=== PATIENT | female | born 1945 | race Caucasian/White ===

== ENCOUNTER 2016-11-03 13:37 | Emergency (ER) | payer MEDICARE ==
[~2016-11-03] VITALS: Ht 167.6 cm; Wt 64.0 kg
[~2016-11-03 13:37] MED LIST: (NONE)25 ML IM; ADLT ASA LOW81 MG PO; ALLEGRA-D 1212 HOUR PO; ALPRAZOLAM0.25 M1 PO; AMBIEN10 MG PO; AMOXICILLIN/PO500 MG PO; ATENOLOL25 MG OR; ATENOLOL25 MG PO; AUGMENTIN500TAB PO; BENTYL10 MG PO; CARAFATE1 GM PO; CO Q-10 PO; CYANOCOBALAM1000 MCG IM; FLEXERIL PO; FLEXERIL10 MG PO; FLONASE NASAL50 MCG; FLUARIX QUADRIV1 IN1 IM; FUROSEMIDE40 MG PO; LEVSIN0.125 MG PO; LISINOPRIL10 MG PO; LORTAB 1010 MG PO; LORTAB 5/3255 MG PO; LORTAB 7.5 PO; MEDROL4 M1 PO; METOCLOPRAM5 MG PO; MIRAPEX0.5 MG PO; PANTOPRAZOLE SO40 MG PO; PREVPAC PO; PROTONIX20 MG PO; RESTORIL15 M1 PO; TRAMADOL HCL50 MG PO; TRIAZOLAM0.125 MG PO; VICODIN1 TAB PO; VITAMIN B-12500 MCG PO; VITAMIN D32000 UNIT PO; XANAX0.5 MG PO; ZOFRAN8 MG PO; ZOLOFT25 MG OR; [UNRECOGNIZED DRUG - OTHER] PO
[2016-11-03 15:20] LABS: HEMATOCRIT 41.9 % (37.0-47.0); HEMOGLOBIN 14.3 g/dl (12.0-16.0); IMMATURE GRANULOCYTES 0.2 % (0.0-1.0); MEAN CELL VOLUME 93.1 fL CALC (80.0-100.0); MEAN CORPUSCULAR HGB 31.8 pG CALC (26.0-32.0); MEAN CORPUSCULAR HGB CONC 34.1 g/L CALC (32.0-36.0); NEUT# 9.28 thou/uL (2.00-7.15); RED BLOOD COUNT 4.5 mill/uL (4.20-5.60); RED CELL DISTRI WIDTH 12.6 % (11.5-15.5)
[2016-11-03 15:54] LABS: ALBUMIN 4.6 g/dL (3.2-5.0); ALKALINE PHOSPHATASE 71 u/l (38-126); ANION GAP 16 (6-22 (CALC)); BILIRUBIN, TOTAL 0.7 mg/dL (0.0-1.4); BUN 18 mg/dL (8-23); BUN/CREATININE RATIO 22 (12-20 (CALC)); CALCIUM 9.6 mg/dL (8.4-10.2); CARBON DIOXIDE 28 mmol/l (22-30); CHLORIDE 101 mmol/l (95-108); CREATININE 0.8 mg/dL (0.5-1.0); GFR > 60 ML/MIN (>=60 (CALC)); GFR FOR AFR.AMER. > 60 ML/MIN (>=60 (CALC)); GLUCOSE 97 mg/dL (82-115); POTASSIUM 4.1 mmol/l (3.5-5.1); SGOT/AST 26 u/l (9-36); SGPT/ALT 45 u/l (11-66); SODIUM 141 mmol/l (137-146); TOTAL PROTEIN 7.7 g/dL (6.3-8.2)
[2016-11-03] MEDS ORDERED: TYLENOL # 31 TA1 PO (16:07)
[2016-11-03] MEDS ORDERED: PREDNISONE10 MG PO (16:07)
[2016-11-03] MEDS ORDERED: ZITHROMAX250 MG PO (16:07)
[2016-11-03] MEDS ORDERED: VENTOLIN HFA IN (16:07)
[2016-11-03 16:40] VITALS: BP 132/78
== END 2016-11-03 16:45 | disposition home or self-care (01) ==
LOC: ED 13:37
PROVIDERS: Emergency Medicine
DX: J20.9 Acute bronchitis, unspecified (principal); R50.9 Fever, unspecified; R05 Cough; R06.02 Shortness of breath; I50.9 Heart failure, unspecified; I10 Essential (primary) hypertension

== ENCOUNTER → 2018-09-10 | Outpatient (REF) | payer MEDICARE ==
[~2018-09-10] MED LIST changes: +PREDNISONE10 MG PO; +TYLENOL # 31 TA1 PO; +VENTOLIN HFA IN; +ZITHROMAX250 MG PO
== END | disposition home or self-care (01) ==
LOC: MAMMO 13:30
PROVIDERS: ATTEND Nurse Practitioner Family
DX: Z12.31 Encounter for screening mammogram for malignant neoplasm of breast (principal)

== ENCOUNTER 2019-11-27 07:39 | Day surgery (SDC) | payer MEDICARE ==
[~2019-11-27 07:39] MED LIST changes: +AMBIEN5 MG PO; +CARAFATE PO; +CARVEDILOL25 MG PO; +DICYCLOMINE10 MG PO; +FAMOTIDINE20 M1 PO; +HYDROCO/APAP1 TA9 PO; +PREVALITE4 G1 PO; +TRULICITY0.75 MG/0. SC; +ZETIA10 MG PO; +ZOLOFT50 MG PO
[2019-11-27 10:31] VITALS: BP 130/70
== END 2019-11-27 10:30 | disposition home or self-care (01) ==
LOC: ENDO 07:39 → ORM 08:30 → ENDO 08:30
PROVIDERS: ATTEND Surgery
PROC: 0DBL8ZX Excision of Transverse Colon, Via Natural or Artificial Opening Endoscopic, Diagnostic (ICD-10-PCS; principal; 2019-11-27)
PROC: 0DB48ZX Excision of Esophagogastric Junction, Via Natural or Artificial Opening Endoscopic, Diagnostic (ICD-10-PCS; 2019-11-27)
PROC: 0DB68ZX Excision of Stomach, Via Natural or Artificial Opening Endoscopic, Diagnostic (ICD-10-PCS; 2019-11-27)
DX: Z12.11 Encounter for screening for malignant neoplasm of colon (principal); D12.3 Benign neoplasm of transverse colon; K22.70 Barrett's esophagus without dysplasia; K29.50 Unspecified chronic gastritis without bleeding; Z80.0 Family history of malignant neoplasm of digestive organs; Z86.19 Personal history of other infectious and parasitic diseases; Z11.59 Encounter for screening for other viral diseases

== ENCOUNTER 2021-04-20 17:15 | Observation (INO) | payer MEDICARE ==
[~2021-04-20] VITALS: Ht 167.6 cm; Wt 75.0 kg
--- NOTE | 2021-04-20 17:17 | NUR ---
PT TO ROOM PER W/C, DR. MANZANO AT BEDSIDE, STROKE ALERT/CALLED.
[2021-04-20 17:31] LABS: GFR > 60 ML/MIN (>=60 (CALC)); GFR FOR AFR.AMER. > 60 ML/MIN (>=60 (CALC))
--- NOTE | 2021-04-20 17:45 | NUR ---
PT TAKEN BY STRETCHER TO RADIOLOGY FOR CT
--- NOTE | 2021-04-20 18:00 | NUR ---
PT SPEAKING WITH DR VALDES VIA VIDEO FOR NEURO ASSESSMENT
[2021-04-20 18:58] LABS: HEMATOCRIT 43.2 % (37.0-47.0); HEMOGLOBIN 14.4 g/dl (12.0-16.0); IMMATURE GRANULOCYTES 0.2 % (0.0-5.0); MEAN CELL VOLUME 91.7 fL CALC (80.0-100.0); MEAN CORPUSCULAR HGB 30.6 pG CALC (26.0-32.0); MEAN CORPUSCULAR HGB CONC 33.3 g/dL CAL (32.0-36.0); NEUT# 3.8 thou/uL (2.00-7.15); RED BLOOD COUNT 4.71 mill/uL (4.20-5.60); RED CELL DISTRI WIDTH 12.2 % (11.5-15.5)
[2021-04-20 18:59] LABS: URINE BILIRUBIN - DIPSTICK NEGATIVE (NEGATIVE); URINE BLOOD DIPSTICK SMALL (NEGATIVE); URINE COLOR YELLOW; URINE GLUCOSE - DIPSTICK 250 mg/dL (NEGATIVE); URINE KETONE NEGATIVE (NEGATIVE); URINE LEUK ESTERASE NEGATIVE (NEGATIVE); URINE PH 6.5 (4.5-8.0); URINE PROTEIN - DIPSTICK NEGATIVE (NEG-TRACE); URINE UROBILINOGEN - DIPSTICK 0.2 E.U./dL (0.2)
[2021-04-20 19:04] LABS: URINE NITRITE - DIPSTICK NEGATIVE (Negative)
[2021-04-20 19:10] LABS: ALBUMIN 4.7 g/dL (3.2-5.0); ANION GAP 15 (6-22 (CALC)); BILIRUBIN, TOTAL 0.5 mg/dL (0.0-1.4); BUN 16 mg/dL (8-23); BUN/CREATININE RATIO 26 (12-20 (CALC)); CARBON DIOXIDE 25 mmol/l (22-30); CHLORIDE 102 mmol/l (95-108); CREATININE 0.6 mg/dL (0.5-1.0); GFR > 60 ML/MIN (>=60 (CALC)); GFR FOR AFR.AMER. > 60 ML/MIN (>=60 (CALC)); POTASSIUM 3.9 mmol/l (3.5-5.1); SGOT/AST 26 u/l (9-36); SODIUM 138 mmol/l (137-146)
[2021-04-20 19:11] LABS: URINE SQUAMOUS EPITHELIAL CELL FEW EPI/hpf (0-FEW); URINE WBC 0-2 WBC/hpf (0-5)
[2021-04-20 19:14] LABS: PROTHROMBIN TIME 10.4 SECONDS (9.0-12.5)
[2021-04-20 19:16] LABS: ALKALINE PHOSPHATASE 151 u/l (38-126)
--- NOTE | 2021-04-20 19:40 | NUR ---
PT AMBULATED TO ED BATHROOM WITH STANDBY ASSIST. PT REPORT FEELING NAUSEATED. PT AWARE THAT WE ARE WAITING FOR COVID RESULTS BEFORE ADMITTING TO MED/SURG
--- NOTE | 2021-04-20 19:58 | NUR ---
FAMILY AT BEDSIDE. PT STABLE.
--- NOTE | 2021-04-20 20:10 | NUR ---
PT REFUSED ASPIRIN DUE TO HISTORY OF ULCER. CALL PLACED TO HOSPITALIST FOR ORDER FOR PT'S NAUSEA-LEFT MESSAGE, AWAITING ORDERS.
--- NOTE | 2021-04-20 20:41 | NUR ---
[facility] REPORT CALLED TO [facility]ANS[facility] RN/ICU. PT TO GO TO ROOM #2
--- NOTE | 2021-04-20 21:20 | NUR ---
PATIENT RECEIVED INTO ICU 2 FROM ER VIA STRETCHER. PATIENT AMBULATED FROM DOORWAY TO FAR SIDE OF BED TO USE BSC ON ARRIVAL TO ROOM. STABLE STANCE AND GAIT NOTED.
[2021-04-20 21:30] VITALS: BP 217/95
--- NOTE | 2021-04-20 21:30 | NUR ---
MANUELT UNABLE TO VOID AT THIS TIME. ASSISTED INTO BED AND PLACED ON FABRICATION ENGINEER SHOWING SR. PATIENT IS ALERT AND ORIENTED X4. FACE SYMMETRICAL, SPEECH CLEAR AND APPROPRIATE. FOLLOWS DIRECTIONS. STRENGTH OF LEFT EXTREMITIES, HG AND P/P WEAKER THAN RIGHT SIDE. PATIENT STATES THAT LEFT SIDED WEAKNESS IS NORMAL FOR HER SINCE HER SPINAL FUSION IN DECEMBER. RESP NON-LABORED. BREATH SOUNDS CLEAR THROUGHOUT LUNG LIVE. NO PERIPHERAL EDEMA, PULSES PALPABLE. SALINE LOCK INTACT IN RAC, SITE BENIGN. DISCUSSED PLAN OF CARE. PATIENT HAS MULTIPLE REQUESTS, SOMETHING FOR NAUSEA, A SLEEPING PILL AND HYDROCODONE 2 TABS WHICH SHE STATES SHE TAKES AT HOME. EXPLAINED USE OF CALL DASH AND BED CONTROLS. CALL DASH IN REACH.
[2021-04-20 21:45] VITALS: BP 178/84
--- NOTE | 2021-04-20 21:57 | NUR ---
CALL TO DR WHITMAN INFORMED HIM OF PATIENT REQUEST FOR SLEEPING PILL, NAUSEA MED AND PAIN MED.
[2021-04-20 22:00] VITALS: BP 191/91
--- NOTE | 2021-04-20 22:05 | NUR ---
MED REC COMPLETED.
[2021-04-20] MEDS ORDERED: CYMBALTA60 MG PO (22:06)
[2021-04-20 22:30] VITALS: BP 184/85; BP 185/85
--- NOTE | 2021-04-20 22:30 | NUR ---
ZOFRAN 4 MG IVP GIVEN FOR NAUSEA ORDERED.
[2021-04-20 23:00] VITALS: BP 184/85
--- NOTE | 2021-04-20 23:00 | NUR ---
PATIENT INSISTS THAT SHE CANNOT VOID ON BSC. AMBULATED WITH MINIMAL ASSIST TO BATHROOM, VOIDED LARGE AMOUNT.
--- NOTE | 2021-04-20 23:05 | NUR ---
MEDICATED WITH HYDROCODONE 5/325, 2 TABS FOR C/O LOW BACK PAIN 03/04. SONATA 5 MG PO GIVEN FOR SLEEP.
[2021-04-21] VITALS (13 sets, daily range): BP systolic 139–205; BP diastolic 65–93
--- NOTE | 2021-04-21 | NUR ---
PATIENT AWAKE ON ROUNDS. STATES LOW BACK PAIN IS BETTER. VSS. SR ON MONITOR.
--- NOTE | 2021-04-21 02:00 | NUR ---
RESTING WITH EYES CLOSED. VSS. SR ON MONITOR.
--- NOTE | 2021-04-21 04:00 | NUR ---
PATIENT AWAK ON ROUNDS. AMBULATED TO BR TO VOID. STABLE STANCE AND GAIT NOTED. C/O HEADACHE AND LOW BACK ACHE. NOT TIME FOR PAIN MEDS. PATIENT GIVEN ICE PCK FOR FOREHEAD AND BACK OF NECK.
--- NOTE | 2021-04-21 05:00 | NUR ---
JOHN C/O NAUSEA MEDICATED WITH ZOFRAN ORDERED. BLOOD DRAWN FROM RAC SALINE LOCK FOR AM LAB WORK. MEDICATED FOR PAIN ORDERED. VSS.
[2021-04-21 06:04] LABS: HEMATOCRIT 44.2 % (37.0-47.0); HEMOGLOBIN 14.5 g/dl (12.0-16.0); MEAN CELL VOLUME 93.1 fL CALC (80.0-100.0); MEAN CORPUSCULAR HGB 30.5 pG CALC (26.0-32.0); MEAN CORPUSCULAR HGB CONC 32.8 g/dL CAL (32.0-36.0); RED BLOOD COUNT 4.75 mill/uL (4.20-5.60); RED CELL DISTRI WIDTH 12.1 % (11.5-15.5)
--- NOTE | 2021-04-21 06:05 | NUR ---
RESTING WITH EYES CLOSED. RESP NON-LABORED. SR ON MONITOR.
[2021-04-21 06:09] LABS: ANION GAP 13 (6-22 (CALC)); BUN 15 mg/dL (8-23); BUN/CREATININE RATIO 24 (12-20 (CALC)); CALCULATED LDLCHOLESTEROL 117 mg/dL (62-129 (CALC)); CARBON DIOXIDE 25 mmol/l (22-30); CHLORIDE 104 mmol/l (95-108); CHOLESTEROL HDL RATIO 3.4 (<4.4 (CALC)); CREATININE 0.6 mg/dL (0.5-1.0); GFR > 60 ML/MIN (>=60 (CALC)); GFR FOR AFR.AMER. > 60 ML/MIN (>=60 (CALC)); HDL CHOLESTEROL 65 mg/dL (>=40); SODIUM 138 mmol/l (137-146); TOTAL CHOLESTEROL 223 mg/dl (0-199); TOTAL TRIGLYCERIDES 207 mg/dl (30-149); VLDL CHOLESTROL 41 mg/dl (0-48 (CALC))
--- NOTE | 2021-04-21 07:00 | NUR ---
ASSUMED CARE OF PT, PT APPEARS TO BE SLEEPING, VSS, NO S/S OF DISTRESS NOTED.
--- NOTE | 2021-04-21 08:15 | NUR ---
PT MEDICATED PER EMAR FOR HEADACHE 10/02. PT HAS NO OTHER COMPLAINTS, NIH SCORE 0, NO S/S OF DISTRESS NOTED.
--- NOTE | 2021-04-21 09:05 | NUR ---
SPOKE WITH PT ABOUT PREMEDICATION FOR MRI, SHE STATES SHE NEEDS IT, INFORMED , ORDERS PLACED, WILL TRANSPORT TO MRI WHEN GIVEN.
--- NOTE | 2021-04-21 09:21 | NUR ---
PT TRANSPORTED TO MRI VIA WHEELCHAIR
--- NOTE | 2021-04-21 10:25 | NUR ---
PT BACK IN ROOM FROM MRI
--- NOTE | 2021-04-21 10:41 | NUR ---
PT AT BEDSIDE
--- NOTE | 2021-04-21 11:33 | NUR ---
PT ACCUCHECK DONE-BG 186- STATES SHE WILL NOT TAKE INSULIN. LUNCH TRAY PROVIDED, PT DROWSY FROM MEDICATION FOR MRI, AND IS NOT EATING AT THIS TIME
[2021-04-21] MEDS ORDERED: AMLODIPINE BESYL5 MG PO (12:16)
--- NOTE | 2021-04-21 12:53 | NUR ---
PT INDICATED UNDERSTANDING OF DISCHARGE INTRUCTIONS, PT RIDE IS DOWNSTAIRS, SHE IS UP AND DRESSED HERSELF, INDICATED UNDERSTANDING OF HER NEW MEDICATION. NO S/S OF DISTRESS NOTED, INDICATED NO OTHER QUESTIONS, IV TAKEN OUT, PT BELONGINS IN HAND
== END 2021-04-21 13:05 | disposition home or self-care (01) ==
LOC: ED 17:15 → ED-I 18:50 → ED 19:20 → ICU 19:21
PROVIDERS: Family Medicine; ADMIT Hospitalist; ATTEND Hospitalist
DX: R20.0 Anesthesia of skin (principal); I10 Essential (primary) hypertension; E11.9 Type 2 diabetes mellitus without complications; R53.1 Weakness; G89.29 Other chronic pain; M54.50 Low back pain, unspecified; Z98.1 Arthrodesis status; Z86.73 Personal history of transient ischemic attack (TIA), and cerebral infarction without residual deficits; Z79.891 Long term (current) use of opiate analgesic; Z20.822 Contact with and (suspected) exposure to COVID-19
CPT/HCPCS: J1650; J2060; Q9967